=== PATIENT | male | born 1945 | race Caucasian/White ===

== ENCOUNTER 2020-01-24 18:02 | Emergency (ER) | payer MEDICARE, SELFPAY ==
[2020-01-24] MEDS ORDERED: Adacel (T-DAP) 0.5 ML SYRINGE ONE (18:19)
[2020-01-24] MEDS ORDERED: Sodium Chloride 0.9% 1,000 ML ONE (18:25)
[2020-01-24] MEDS ORDERED: Bacitracin 1 PK ONE (19:02)
[2020-01-24] MEDS ORDERED: Silver Sulfadiazine 50 GM TUBE ONE (19:02)
== END 2020-01-24 19:42 | disposition home or self-care (01) ==
LOC: NAV ERS 18:02
DX: T22.212A Burn of second degree of left forearm, initial encounter (principal); T23.251A Burn of second degree of right palm, initial encounter; T20.29XA Burn of second degree of multiple sites of head, face, and neck, initial encounter; I48.91 Unspecified atrial fibrillation; I10 Essential (primary) hypertension; Z79.899 Other long term (current) drug therapy; X04.XXXA Exposure to ignition of highly flammable material, initial encounter
CPT/HCPCS: 16025; 90471; 90715; J7050